=== PATIENT | female | born 1995 | race Caucasian/White ===

== ENCOUNTER 2018-07-02 19:22 | Emergency (ER) | payer SELFPAY ==
[~2018-07-02] VITALS: Ht 162.6 cm; Wt 61.4 kg
[2018-07-02 19:25] VITALS: BP 127/79; PULSE 104; RESP 24; Ht 162.6 cm; Wt 61.4 kg
[2018-07-02] MEDS ORDERED: LORAZEPAM 0.5 MG TAB PO ONE (20:30)
[2018-07-02] MEDS ORDERED: LORA-441 PO (20:42)
--- NOTE | 2018-07-02 20:47 | ERD ---
ER Documentation Chief Complaint Chief Complaint sudden anxiety attack while driving with bf; feeling numbness on r arm HPI This otherwise healthy 23-year-old female was driving home today when approximately 20 minutes prior to arrival began having a sensation of panic. She does experience some numbness in her extremities and her face. She denies any chest pain, shortness of breath, fevers. She does not have any specific inciting events. She just recently returned from a cruise and is still wearing a scopolamine patch. She does have a history of anxiety. She is having anxiety over upcoming exams for school. Symptoms are somewhat improved over the last few minutes. Denies any history of similar symptoms this severe. ROS All systems reviewed and are negative except as per history of present illness. Medications Home Meds Active Scripts Lorazepam* (Ativan*) 0.5 Mg Tablet, 0.5 MG PO Q8, #5 TAB Prov:BROOKS CABAN MD 07/02/18 PMhx/Soc Medical and Surgical Hx: pt denies Medical Hx, pt denies Surgical Hx History of Surgery: No Anesthesia Reaction: No Hx Neurological Disorder: No Hx Respiratory Disorders: No Hx Cardiac Disorders: No Hx Psychiatric Problems: No Hx Miscellaneous Medical Probl: No Hx Alcohol Use: Yes Hx Substance Use: No Hx Tobacco Use: No Smoking Status: Never smoker FmHx Family History: No diabetes, No coronary disease, No other Physical Exam Vitals Vital Signs Date Temp Pulse Resp B/P (MAP) Pulse Ox O2 O2 Flow FiO2 Time Delivery Rate 07/02/18 98.1 104 24 127/79 98 19:25 (95) Physical Exam Const: No acute distress Head: Atraumatic Eyes: Normal Conjunctiva ENT: Normal External Ears, Nose and Mouth. Neck: Full range of motion. No meningismus. Resp: Clear to auscultation bilaterally Cardio: Regular rate and rhythm, no murmurs Abd: Soft, non tender, non distended. Normal bowel sounds Skin: No petechiae or rashes Back: No midline or flank tenderness Ext: No cyanosis, or edema Neur: Awake and alert cranial nerves II through XII grossly intact. No cerebellar signs. Negative Romberg and no pronator drift. Psych: Normal Mood and Affect Results 24 hrs Laboratory Tests Test 07/02/18 20:20 Bedside Urine pH (LAB) 6.0 Bedside Urine Protein (LAB) Negative Bedside Urine Glucose (UA) Negative Bedside Urine Ketones (LAB) Negative Bedside Urine Blood Negative Bedside Urine Nitrite (LAB) Negative Bedside Urine Leukocyte Esterase (L Negative POC Beta HCG, Qualitative NEGATIVE Current Medications Medications Dose Sig/Cathy Start Time Status Last (Trade) Ordered Route PRN Stop Time Admin Dose Reason Admin Lorazepam 0.5 mg ONCE ONCE 07/02/18 DC 07/02/18 (Ativan) PO 20:30 20:14 07/02/18 20:31 Procedures/MDM Patient is well-appearing. Patient has no signs or symptoms to suggest chest pain, shortness of breath, no identified neurologic deficits. Symptoms suggest likely panic attack or hyperventilation related symptoms. She may be having side effects from scopolamine which she is still wearing. She did take cold medicines today which could potentially have an interaction. Further evaluation such as laboratory work was discussed with patient but she declined as she is needle phobic. She is well-appearing without signs of hyper cholinergic symptoms. She is advised to remove the scopolamine patch which she did. She is given Ativan 0.5 mg p.o. Patient is well-appearing and eating on serial exam. Patient will be discharged home with further observation and return precautions. I do not think any further study will be fruitful today. Urine is negative and hCG negative. Departure Diagnosis: Primary Impression: Anxiety attack Condition: Stable Patient Instructions: Hyperventilation Syndrome, Panic Attack Additional Instructions: Symptoms suggest likely panic attack or hyperventilation. Recommend controlled breathing or breathing into a bag for recurrent symptoms. Recheck otherwise for new worsening symptoms-weakness chest, chest pain, shortness breath, fevers, additional symptoms. BROOKS CABAN MD July 02, 2018 20:47
== END 2018-07-02 21:19 | disposition home or self-care (01) ==
LOC: FTE 19:22
DX: F41.9 Anxiety disorder, unspecified (principal)
CPT/HCPCS: 81003; 81025; 99283